=== PATIENT | female | born 1935 | race African-American/Black ===

== ENCOUNTER 2017-01-02 20:18 | Inpatient (IN) | payer MEDICARE, MEDICAID ==
[~2017-01-02] VITALS: Ht 162.6 cm; Wt 90.3 kg
[~2017-01-02 20:18] MED LIST: ACET-2154 PO; AMLO2.5T PO; ASCO500T9 PO; ASPI81TA31 PO; ATOR40TA PO; BISA10SU12 RC; BLOO-668 IN; DIVA125C PO; DOCU-25 PO; FAMO-132 PO; GABA-532 PO; GLIP10TA11 PO; HYDR-4076 PO; HYDROCORTISONE CREAM TOP; INSU100V10 SQ; INSU100V28 SQ; LORA0.5T PO; MAALOX PO; MAGN400O4 PO; OXYB5TAB PO; PROT946L PO; QUET100T PO; TRIA60LO7 TOP; ZOLP5TAB7 PO; [UNRECOGNIZED DRUG - OTHER] EACHEYE
--- NOTE | 2017-01-02 21:00 | NUR ---
Patient BIB private ambulance for Medical Clearance and GPS admission. Patient arrives on 5150 hold for GD. Per hold, patient has a history of refusing care, hygeine, and medications. Per hold, patient was wandering outside of normal area and barricaded herself behind several lunch tables. Per hold, patient further refuses to allow staff to change her adult daiper despite it being in place greater than 24 hours. To room 3A.
[2017-01-02] MEDS ORDERED: QUET50TA PO (21:10)
[2017-01-02] MEDS ORDERED: ENOX30DI5 SQ (21:10)
[2017-01-02] MEDS ORDERED: LINA5TAB PO (21:10)
[2017-01-02] MEDS ORDERED: [UNRECOGNIZED DRUG - CODE] MC (21:10)
[2017-01-02] MEDS ORDERED: OXCA300T PO (21:10)
[2017-01-02] MEDS ORDERED: HYDR-4076 PO (21:10)
[2017-01-02] MEDS ORDERED: POLY15DR57 OP (21:10)
[2017-01-02] MEDS ORDERED: QUET25TA PO (21:10)
[2017-01-02] MEDS ORDERED: GLUC1VIA4 IJ (21:10)
[2017-01-02 21:53] LABS: BASOPHILS % (AUTO) 0.2 % (0.0-2.0); EOSINOPHILS # (AUTO) 0.1 K/uL (0.0-0.7); EOSINOPHILS % (AUTO) 0.9 % (0.0-7.0); HEMATOCRIT 38.8 % (37.0-47.0); HEMOGLOBIN 12.7 g/dL (12.0-16.0); LYMPHOCYTES # (AUTO) 1.5 K/uL (0.8-4.8); LYMPHOCYTES % (AUTO) 12.5 % (20.5-51.5); MEAN CORPUSCULAR HEMOGLOBIN 27.5 uug (27.0-31.0); MEAN CORPUSCULAR HGB CONC 33 g/dL (32.0-37.0); MEAN CORPUSCULAR VOLUME 83.9 fL (81.0-99.0); MONOCYTES # (AUTO) 0.8 K/uL (0.1-1.30); MONOCYTES % (AUTO) 6.6 % (0.0-11.0); NEUTROPHILS # (AUTO) 9.3 K/uL (1.8-8.9); NEUTROPHILS % (AUTO) 79.8 % (38.5-71.5); RED BLOOD CELL COUNT(AUTO) 4.62 MIL/uL (4.20-5.40); RED CELL DISTRIBUTION WIDTH 14.6 % (11.5-14.5); WHITE BLOOD COUNT (AUTO) 11.7 K/uL (4.0-11.2)
[2017-01-02 21:58] LABS: PLATELET COUNT (AUTO) 250 K/uL (150-450)
[2017-01-02 21:59] LABS: CALCIUM 9.4 mg/dL (8.5-10.1); CREATININE 1.6 mg/dL (0.6-1.3); POTASSIUM 4.4 mmol/L (3.5-5.1)
[2017-01-02 22:08] LABS: ALBUMIN 3.7 g/dL (3.4-5.0); BILIRUBIN,DIRECT 0.1 mg/dL (0.0-0.2); BILIRUBIN,TOTAL 0.5 mg/dL (0.1-1.0)
--- NOTE | 2017-01-02 23:19 | NUR ---
Pt. admitted to GPS, under care of Dr. Ordaz Belongs List completed
[2017-01-02 23:30] VITALS: BP 142/95
[2017-01-02] MEDS ORDERED: LORAZEPAM 1 MG TABLET PO PRN (23:30)
[2017-01-02] MEDS ORDERED: MAGNESIUM HYDROXIDE 30 ML LIQUID UDC PO PRN (23:30)
[2017-01-02] MEDS ORDERED: MAG HYDROX/AL HYDROX/SIMETH 30 ML LIQUID UDC PO PRN (23:30)
[2017-01-02] MEDS ORDERED: ACETAMINOPHEN 325 MG TABLET PO PRN (23:30)
[2017-01-02] MEDS ORDERED: ZOLPIDEM 5 MG TABLET PO PRN (23:30)
--- NOTE | 2017-01-03 01:02 | NUR ---
RECEIVED TO CARE, ON A 5150 FOR GRAVELY DISABLED, THIS AA FEMALE FROM [facility]. ACCORDING TO THE CHART, SHE RETURNED TO HER FACILITY ON 12/30/16 FROM [facility]. SINCE HER RETURN, SHE HAS BEEN REFUSING MEDS, BELIEVING THEM TO CAUSE HER "SCABIES". SHE HAS ALSO BEEN REFUSING CARE AND REDIRECTION BY STAFF. SHE BARRICADED HERSELF IN THE DINING ROOM WITH TABLES. SHE ALSO WOULD NOT LET STAFF CHANGE HER DIAPER FOR 24 HOURS. UPON ARRIVAL ON THE UNIT, SHE WAS DISHEVELED AND MALODOROUS. SHE WAS ASSISTED WITH A SHOWER. SHE WAS COOPERATIVE WITH ADMISSION QUESTIONS, BUT IS A POOR HISTORIAN. ORIENTED TO UNIT, AND CONTRACTED FOR SAFETY.SHE ARRIVED ON THE UNIT AT 2320. WAS ASSISITED TO BED BY 0015. SHE WAS ASLEEP BY 0030. OF 101, SHE REMAINS ASLEEP. NO DISTRESS NOTED. WILL CONTINUE TO MONITOR CLOSELY.
--- NOTE | 2017-01-03 06:00 | NUR ---
slept 5.75 hours. assisted with AM care, and shower. no distress noted.
--- NOTE | 2017-01-03 06:15 | NUR ---
AM accucheck was 177.
[2017-01-03 07:30] VITALS: BP 129/81
[2017-01-03] MEDS ORDERED: DEXTROSE 50% 50 ML DISP.SYRIN IV PRN (08:30)
[2017-01-03] MEDS: ASCORBIC ACID 500 MG TABLET PO SCH (10:21)
[2017-01-03] MEDS: GABAPENTIN 100 MG CAPSULE PO SCH ×3 (10:21→17:24)
[2017-01-03] MEDS: AMLODIPINE 2.5 MG TABLET PO SCH (10:21)
[2017-01-03] MEDS: ASPIRIN 81 MG TAB.CHEW PO SCH (10:21)
[2017-01-03] MEDS: OXCARBAZEPINE 300 MG TABLET PO SCH ×3 (10:21→17:24)
[2017-01-03] MEDS: DOCUSATE SODIUM 100 MG CAPSULE PO SCH ×2 (10:21→17:00)
[2017-01-03] MEDS: OXYBUTYNIN XL 5 MG TABSR PO SCH (10:21)
[2017-01-03] MEDS: POLYVINYL ALCOHOL OPHT DROPS 15 ML BOTTLE EACHEYE SCH ×3 (10:22→17:26)
[2017-01-03] MEDS: INSULIN DETEMIR 300 UNIT/3 ML CARTRIDGE SQ SCH ×2 (10:43→20:49)
[2017-01-03] MEDS: MIRALAX 17 GM POWD.PACK PO SCH ×2 (11:45→17:00)
[2017-01-03] MEDS ORDERED: GLUCAGON,HUMAN RECOMBINANT 1 MG VIAL IM PRN (11:45)
[2017-01-03] MEDS: BLOOD SUGAR DIAGNOSTIC 1 EACH STRIP VI SCH ×3 (12:07→20:49)
[2017-01-03] MEDS: DIVALPROEX SPRINKLE 125 MG CAP.SPRINK PO SCH ×3 (12:28→21:00)
[2017-01-03] MEDS: INSULIN REGULAR, HUMAN 300 UNIT/3 ML VIAL SQ PRN ×3 (12:30→20:50)
[2017-01-03] MEDS: hydrALAZINE HCL 25 MG TABLET PO SCH ×2 (15:01→22:00)
[2017-01-03 16:00] VITALS: BP 113/64
[2017-01-03] MEDS: QUETIAPINE FUMARATE 25 MG TABLET PO SCH (17:24)
[2017-01-03] MEDS: glipiZIDE 10 MG TABLET PO SCH (17:25)
[2017-01-03] MEDS: ENOXAPARIN SODIUM 30 MG/0.3 ML DISP.SYRIN SQ SCH (20:39)
[2017-01-03 20:40] VITALS: BP 110/56
[2017-01-03] MEDS ORDERED: QUETIAPINE FUMARATE 100 MG TABLET PO SCH (21:00)
[2017-01-03] MEDS: ATORVASTATIN 40 MG TABLET PO SCH (21:00)
[2017-01-03] MEDS: FAMOTIDINE 20 MG TABLET PO SCH (21:00)
--- NOTE | 2017-01-03 22:00 | NUR ---
received to care, lying in bed, pleasant upon approach. when approached to take her bedtime medications, she was sound asleep. able to be awakened, but she went right back to sleep, so her bedtime medications were held. as of 2199, she remains asleep. respirations are even and unlabored. no distress noted. will continue to monitor closely.
--- NOTE | 2017-01-04 06:00 | NUR ---
slept 10 hours, total.
[2017-01-04] MEDS: hydrALAZINE HCL 25 MG TABLET PO SCH ×3 (06:17→21:26)
[2017-01-04] MEDS: BLOOD SUGAR DIAGNOSTIC 1 EACH STRIP VI SCH ×4 (06:33→21:15)
[2017-01-04 07:56] LABS: BASOPHILS % (AUTO) 0.2 % (0.0-2.0); EOSINOPHILS # (AUTO) 0.1 K/uL (0.0-0.7); EOSINOPHILS % (AUTO) 1.3 % (0.0-7.0); HEMATOCRIT 33.1 % (37.0-47.0); HEMOGLOBIN 10.6 g/dL (12.0-16.0); LYMPHOCYTES # (AUTO) 2.5 K/uL (0.8-4.8); LYMPHOCYTES % (AUTO) 33.8 % (20.5-51.5); MEAN CORPUSCULAR HGB CONC 32 g/dL (32.0-37.0); MEAN CORPUSCULAR VOLUME 84.1 fL (81.0-99.0); MONOCYTES # (AUTO) 0.5 K/uL (0.1-1.30); MONOCYTES % (AUTO) 7.1 % (0.0-11.0); NEUTROPHILS # (AUTO) 4.4 K/uL (1.8-8.9); NEUTROPHILS % (AUTO) 57.6 % (38.5-71.5); PLATELET COUNT (AUTO) 216 K/uL (150-450); RED BLOOD CELL COUNT(AUTO) 3.94 MIL/uL (4.20-5.40); RED CELL DISTRIBUTION WIDTH 14.8 % (11.5-14.5); WHITE BLOOD COUNT (AUTO) 7.5 K/uL (4.0-11.2)
[2017-01-04 08:00] VITALS: BP 126/65
[2017-01-04 08:01] LABS: ALBUMIN 2.8 g/dL (3.4-5.0); BILIRUBIN,TOTAL 0.2 mg/dL (0.2-1.0); MAGNESIUM 2.2 mg/dL (1.8-2.4); PHOSPHOROUS 3.8 mg/dL (2.5-4.9); POTASSIUM 3.8 mmol/L (3.5-5.1); TOTAL PROTEIN, SERUM 6.7 g/dL (6.4-8.2)
[2017-01-04 08:02] LABS: CREATININE 1.6 mg/dL (0.6-1.3)
[2017-01-04 08:08] LABS: THYROID STIMULATING HORMONE 0.459 mIU/mL (0.358-3.740)
[2017-01-04] MEDS: INSULIN REGULAR, HUMAN 300 UNIT/3 ML VIAL SQ PRN (08:10)
[2017-01-04] MEDS: glipiZIDE 10 MG TABLET PO SCH ×2 (08:11→16:30)
[2017-01-04] MEDS: DOCUSATE SODIUM 100 MG CAPSULE PO SCH ×2 (08:12→16:30)
[2017-01-04] MEDS: GABAPENTIN 100 MG CAPSULE PO SCH ×3 (08:12→16:29)
[2017-01-04] MEDS: ASPIRIN 81 MG TAB.CHEW PO SCH (08:12)
[2017-01-04] MEDS: ASCORBIC ACID 500 MG TABLET PO SCH (08:12)
[2017-01-04] MEDS: OXCARBAZEPINE 300 MG TABLET PO SCH ×3 (08:13→16:30)
[2017-01-04] MEDS: DIVALPROEX SPRINKLE 125 MG CAP.SPRINK PO SCH ×4 (08:13→21:25)
[2017-01-04] MEDS: MIRALAX 17 GM POWD.PACK PO SCH ×2 (08:13→16:29)
[2017-01-04] MEDS: QUETIAPINE FUMARATE 25 MG TABLET PO SCH ×2 (08:13→16:30)
[2017-01-04] MEDS: OXYBUTYNIN XL 5 MG TABSR PO SCH (08:16)
[2017-01-04] MEDS: POLYVINYL ALCOHOL OPHT DROPS 15 ML BOTTLE EACHEYE SCH ×3 (08:17→16:29)
[2017-01-04] MEDS: AMLODIPINE 2.5 MG TABLET PO SCH (08:17)
[2017-01-04] MEDS: INSULIN DETEMIR 300 UNIT/3 ML CARTRIDGE SQ SCH ×2 (08:48→21:00)
--- NOTE | 2017-01-04 12:54 | NUR ---
Initial discharge instructions: Patient resides at [facility] [[address] [facility] [place] [address]; ]. Spoke with Ritesh at the facility who stated that they will accept the patient back once she is ready for discharge. ALICIA has called the patient's son/probate conservator Ganesh Genao who stated that he would like to place the patient at a facility that is closer to his home ([place]). SS will speak with patient, family, and MD regarding most appropriate discharge plan. SS will form a safe and proper discharge.
[2017-01-04 15:32] VITALS: BP 154/61
--- NOTE | 2017-01-04 16:30 | NUR ---
Glucotrol held due to decreased blood sugar. Asymptomatic at this time.
[2017-01-04 20:28] VITALS: BP 114/65
[2017-01-04] MEDS: ATORVASTATIN 40 MG TABLET PO SCH (21:25)
[2017-01-04] MEDS: FAMOTIDINE 20 MG TABLET PO SCH (21:25)
[2017-01-04] MEDS: QUETIAPINE FUMARATE 100 MG TABLET PO SCH (21:25)
[2017-01-04] MEDS: ENOXAPARIN SODIUM 30 MG/0.3 ML DISP.SYRIN SQ SCH (21:26)
--- NOTE | 2017-01-04 22:00 | NUR ---
received to care, lying in bed, pleasant upon approach. compliant with medications and staff direction. bedtime dose of levamir was not given. pt refused dinner, and her blood sugar was only 60. milk and applesauce were given at bedtime. as of 2200, she appears to be asleep. no distress noted. will continue to monitor closely.
--- NOTE | 2017-01-05 06:15 | NUR ---
slept 7.5 hours. AM accucheck is 43. orange juice with sugar given. will continue to monitor
[2017-01-05] MEDS: BLOOD SUGAR DIAGNOSTIC 1 EACH STRIP VI SCH ×6 (06:16→21:47)
[2017-01-05] MEDS: hydrALAZINE HCL 25 MG TABLET PO SCH ×3 (06:24→20:55)
--- NOTE | 2017-01-05 06:50 | NUR ---
accucheck is now 68.
[2017-01-05 07:30] VITALS: BP 116/68
[2017-01-05] MEDS: glipiZIDE 10 MG TABLET PO SCH ×2 (07:30→16:52)
[2017-01-05] MEDS: OXCARBAZEPINE 300 MG TABLET PO SCH ×3 (10:12→16:53)
[2017-01-05] MEDS: ASPIRIN 81 MG TAB.CHEW PO SCH (10:13)
[2017-01-05] MEDS: AMLODIPINE 2.5 MG TABLET PO SCH (10:13)
[2017-01-05] MEDS: DIVALPROEX SPRINKLE 125 MG CAP.SPRINK PO SCH ×4 (10:13→20:44)
[2017-01-05] MEDS: DOCUSATE SODIUM 100 MG CAPSULE PO SCH ×2 (10:13→16:53)
[2017-01-05] MEDS: QUETIAPINE FUMARATE 25 MG TABLET PO SCH ×2 (10:13→17:08)
[2017-01-05] MEDS: GABAPENTIN 100 MG CAPSULE PO SCH ×3 (10:13→16:53)
[2017-01-05] MEDS: ASCORBIC ACID 500 MG TABLET PO SCH (10:13)
[2017-01-05] MEDS: INSULIN DETEMIR 300 UNIT/3 ML CARTRIDGE SQ SCH ×2 (10:14→21:00)
[2017-01-05] MEDS: POLYVINYL ALCOHOL OPHT DROPS 15 ML BOTTLE EACHEYE SCH ×3 (10:15→16:52)
[2017-01-05] MEDS: MIRALAX 17 GM POWD.PACK PO SCH ×2 (10:16→16:53)
[2017-01-05] MEDS: OXYBUTYNIN XL 5 MG TABSR PO SCH (10:17)
[2017-01-05] MEDS ORDERED: INFLUENZA VACCINE 0.5 ML DISP.SYRIN IM ONE (11:15)
[2017-01-05] MEDS ORDERED: PNEUMOCOCCAL 23-VAL P-SAC VAC 0.5 ML VIAL IM ONE (11:15)
[2017-01-05] MEDS: INSULIN REGULAR, HUMAN 300 UNIT/3 ML VIAL SQ PRN ×2 (12:24→17:00)
[2017-01-05 15:12] VITALS: BP 119/66
[2017-01-05 20:30] VITALS: BP 111/67
[2017-01-05] MEDS: QUETIAPINE FUMARATE 100 MG TABLET PO SCH (20:44)
[2017-01-05] MEDS: ATORVASTATIN 40 MG TABLET PO SCH (20:44)
[2017-01-05] MEDS: FAMOTIDINE 20 MG TABLET PO SCH (20:45)
[2017-01-05] MEDS: ENOXAPARIN SODIUM 30 MG/0.3 ML DISP.SYRIN SQ SCH (20:51)
[2017-01-06] MEDS: hydrALAZINE HCL 25 MG TABLET PO SCH ×3 (05:38→21:47)
[2017-01-06] MEDS: BLOOD SUGAR DIAGNOSTIC 1 EACH STRIP VI SCH ×5 (06:35→20:51)
[2017-01-06 07:30] VITALS: BP 129/65
[2017-01-06] MEDS: glipiZIDE 10 MG TABLET PO SCH ×3 (07:30→17:18)
[2017-01-06] MEDS: QUETIAPINE FUMARATE 25 MG TABLET PO SCH ×3 (08:08→17:31)
[2017-01-06] MEDS: ASPIRIN 81 MG TAB.CHEW PO SCH (08:08)
[2017-01-06] MEDS: MIRALAX 17 GM POWD.PACK PO SCH ×2 (08:09→17:17)
[2017-01-06] MEDS: GABAPENTIN 100 MG CAPSULE PO SCH ×3 (08:09→17:17)
[2017-01-06] MEDS: DOCUSATE SODIUM 100 MG CAPSULE PO SCH ×2 (08:09→17:17)
[2017-01-06] MEDS: ASCORBIC ACID 500 MG TABLET PO SCH (08:09)
[2017-01-06] MEDS: AMLODIPINE 2.5 MG TABLET PO SCH (08:09)
[2017-01-06] MEDS: DIVALPROEX SPRINKLE 125 MG CAP.SPRINK PO SCH ×4 (08:09→20:06)
[2017-01-06] MEDS: OXCARBAZEPINE 300 MG TABLET PO SCH ×3 (08:09→17:17)
[2017-01-06] MEDS: POLYVINYL ALCOHOL OPHT DROPS 15 ML BOTTLE EACHEYE SCH ×3 (08:11→17:17)
[2017-01-06] MEDS: OXYBUTYNIN XL 5 MG TABSR PO SCH (08:11)
[2017-01-06] MEDS: INSULIN DETEMIR 300 UNIT/3 ML CARTRIDGE SQ SCH ×2 (08:12→20:59)
[2017-01-06] MEDS: INSULIN REGULAR, HUMAN 300 UNIT/3 ML VIAL SQ PRN ×4 (08:13→20:56)
[2017-01-06 15:32] VITALS: BP 105/58
[2017-01-06 19:57] VITALS: BP 159/89
[2017-01-06] MEDS: FAMOTIDINE 20 MG TABLET PO SCH (20:05)
[2017-01-06] MEDS: ATORVASTATIN 40 MG TABLET PO SCH (20:05)
[2017-01-06] MEDS: QUETIAPINE FUMARATE 100 MG TABLET PO SCH (20:06)
[2017-01-06] MEDS: ENOXAPARIN SODIUM 30 MG/0.3 ML DISP.SYRIN SQ SCH (20:09)
[2017-01-06 20:51] VITALS: BP 145/89
[2017-01-06] MEDS: Z GUARD REMEDY PASTE 57 GM TUBE TOP SCH (20:59)
[2017-01-07] MEDS: hydrALAZINE HCL 25 MG TABLET PO SCH ×3 (05:25→21:30)
[2017-01-07] MEDS: BLOOD SUGAR DIAGNOSTIC 1 EACH STRIP VI SCH ×4 (06:09→20:52)
--- NOTE | 2017-01-07 06:29 | NUR ---
GPS: REMAIN CALM AND COOPERATIVE WITH MEDS AND CARE. SHOWERED THIS MORNING.BLOOD SUGAR 170 MG/DL THIS AM. ASSISTED WITH ADL'S. SLEPT 6:30 HRS THROUGH THE NIGHT. SITTING IN [facility] CHAIR NEAR NURSING STATION FOR SAFETY.
[2017-01-07 07:53] VITALS: BP 127/71
[2017-01-07] MEDS: QUETIAPINE FUMARATE 25 MG TABLET PO SCH ×3 (08:31→16:58)
[2017-01-07] MEDS: DIVALPROEX SPRINKLE 125 MG CAP.SPRINK PO SCH ×4 (08:31→20:52)
[2017-01-07] MEDS: GABAPENTIN 100 MG CAPSULE PO SCH ×3 (08:31→16:58)
[2017-01-07] MEDS: DOCUSATE SODIUM 100 MG CAPSULE PO SCH ×2 (08:32→16:57)
[2017-01-07] MEDS: ASCORBIC ACID 500 MG TABLET PO SCH (08:32)
[2017-01-07] MEDS: ASPIRIN 81 MG TAB.CHEW PO SCH (08:32)
[2017-01-07] MEDS: MIRALAX 17 GM POWD.PACK PO SCH ×2 (08:32→16:58)
[2017-01-07] MEDS: POLYVINYL ALCOHOL OPHT DROPS 15 ML BOTTLE EACHEYE SCH ×3 (08:32→17:01)
[2017-01-07] MEDS: AMLODIPINE 2.5 MG TABLET PO SCH (08:32)
[2017-01-07] MEDS: OXYBUTYNIN XL 5 MG TABSR PO SCH (08:36)
[2017-01-07] MEDS: glipiZIDE 10 MG TABLET PO SCH ×2 (08:36→17:01)
[2017-01-07] MEDS: Z GUARD REMEDY PASTE 57 GM TUBE TOP SCH ×2 (08:36→20:53)
[2017-01-07] MEDS: INSULIN DETEMIR 300 UNIT/3 ML CARTRIDGE SQ SCH ×2 (08:38→21:00)
[2017-01-07] MEDS: OXCARBAZEPINE 300 MG TABLET PO SCH ×3 (08:40→16:57)
[2017-01-07] MEDS: INSULIN REGULAR, HUMAN 300 UNIT/3 ML VIAL SQ PRN ×4 (08:40→21:17)
[2017-01-07 15:21] VITALS: BP 141/81
[2017-01-07 20:20] VITALS: BP 142/87
[2017-01-07] MEDS: FAMOTIDINE 20 MG TABLET PO SCH (20:51)
[2017-01-07] MEDS: ATORVASTATIN 40 MG TABLET PO SCH (20:51)
[2017-01-07] MEDS: QUETIAPINE FUMARATE 100 MG TABLET PO SCH (20:51)
[2017-01-07] MEDS: ENOXAPARIN SODIUM 30 MG/0.3 ML DISP.SYRIN SQ SCH (21:08)
--- NOTE | 2017-01-07 22:00 | NUR ---
received to care, lying in bed, pleasant upon approach. compliant with medications and staff direction, except for her levamir insulin; her blood sugar was 195. she agreed to have regular insulin coverage, and her lovenox injection, but she refused the levamir. bedtime snack was given. as of 2200, she appears to be asleep. no distress noted. will continue to monitor closely.
[2017-01-08] MEDS: hydrALAZINE HCL 25 MG TABLET PO SCH ×3 (05:47→22:22)
--- NOTE | 2017-01-08 06:00 | NUR ---
slept 10 hours, total. assisted with AM care, and placed in the gaviota chair. no distress noted.
[2017-01-08] MEDS: BLOOD SUGAR DIAGNOSTIC 1 EACH STRIP VI SCH ×4 (06:07→20:36)
[2017-01-08 07:56] VITALS: BP 112/65
[2017-01-08] MEDS: INSULIN DETEMIR 300 UNIT/3 ML CARTRIDGE SQ SCH ×2 (08:16→20:38)
[2017-01-08] MEDS: OXCARBAZEPINE 300 MG TABLET PO SCH ×3 (08:19→16:27)
[2017-01-08] MEDS: DOCUSATE SODIUM 100 MG CAPSULE PO SCH ×2 (08:19→16:25)
[2017-01-08] MEDS: ASPIRIN 81 MG TAB.CHEW PO SCH (08:19)
[2017-01-08] MEDS: MIRALAX 17 GM POWD.PACK PO SCH ×2 (08:19→16:25)
[2017-01-08] MEDS: DIVALPROEX SPRINKLE 125 MG CAP.SPRINK PO SCH ×4 (08:19→20:14)
[2017-01-08] MEDS: glipiZIDE 10 MG TABLET PO SCH ×2 (08:20→16:27)
[2017-01-08] MEDS: ASCORBIC ACID 500 MG TABLET PO SCH (08:20)
[2017-01-08] MEDS: AMLODIPINE 2.5 MG TABLET PO SCH (08:20)
[2017-01-08] MEDS: GABAPENTIN 100 MG CAPSULE PO SCH ×3 (08:21→16:25)
[2017-01-08] MEDS: OXYBUTYNIN XL 5 MG TABSR PO SCH (08:24)
[2017-01-08] MEDS: POLYVINYL ALCOHOL OPHT DROPS 15 ML BOTTLE EACHEYE SCH ×3 (08:27→16:26)
[2017-01-08] MEDS: QUETIAPINE FUMARATE 25 MG TABLET PO SCH ×2 (08:27→16:25)
[2017-01-08] MEDS: Z GUARD REMEDY PASTE 57 GM TUBE TOP SCH ×2 (08:27→20:52)
[2017-01-08] MEDS: INSULIN REGULAR, HUMAN 300 UNIT/3 ML VIAL SQ PRN ×3 (12:30→20:41)
[2017-01-08 15:36] VITALS: BP 126/69
[2017-01-08 20:00] VITALS: BP 124/82
[2017-01-08] MEDS: ATORVASTATIN 40 MG TABLET PO SCH (20:14)
[2017-01-08] MEDS: QUETIAPINE FUMARATE 100 MG TABLET PO SCH (20:14)
[2017-01-08] MEDS: FAMOTIDINE 20 MG TABLET PO SCH (20:14)
[2017-01-08] MEDS: ENOXAPARIN SODIUM 30 MG/0.3 ML DISP.SYRIN SQ SCH (20:18)
--- NOTE | 2017-01-08 22:00 | NUR ---
received to care, lying in bed, pleasant upon approach. compliant with medications, and staff direction. as of 0, she appears to be asleep. no distress noted. will continue to monitor closely.
--- NOTE | 2017-01-09 06:00 | NUR ---
slept 7.5 hours. assisted with AM care, and shower. currently up in [facility]. no dsitress noted.
[2017-01-09] MEDS: hydrALAZINE HCL 25 MG TABLET PO SCH ×3 (06:15→21:40)
[2017-01-09] MEDS: BLOOD SUGAR DIAGNOSTIC 1 EACH STRIP VI SCH ×4 (06:16→20:05)
[2017-01-09 07:30] VITALS: BP_SYST 128; BP_SYST 130; BP_DIAS 41; BP_DIAS 74
[2017-01-09] MEDS: INSULIN DETEMIR 300 UNIT/3 ML CARTRIDGE SQ SCH ×2 (08:09→20:50)
[2017-01-09] MEDS: OXYBUTYNIN XL 5 MG TABSR PO SCH (08:12)
[2017-01-09] MEDS: DIVALPROEX SPRINKLE 125 MG CAP.SPRINK PO SCH ×4 (08:12→20:47)
[2017-01-09] MEDS: OXCARBAZEPINE 300 MG TABLET PO SCH ×3 (08:12→16:54)
[2017-01-09] MEDS: glipiZIDE 10 MG TABLET PO SCH ×2 (08:12→16:38)
[2017-01-09] MEDS: QUETIAPINE FUMARATE 25 MG TABLET PO SCH ×2 (08:12→16:54)
[2017-01-09] MEDS: GABAPENTIN 100 MG CAPSULE PO SCH ×3 (08:12→16:38)
[2017-01-09] MEDS: ASPIRIN 81 MG TAB.CHEW PO SCH (08:12)
[2017-01-09] MEDS: AMLODIPINE 2.5 MG TABLET PO SCH (08:13)
[2017-01-09] MEDS: DOCUSATE SODIUM 100 MG CAPSULE PO SCH ×2 (08:13→16:38)
[2017-01-09] MEDS: MIRALAX 17 GM POWD.PACK PO SCH ×3 (08:13→16:49)
[2017-01-09] MEDS: ASCORBIC ACID 500 MG TABLET PO SCH (08:15)
[2017-01-09] MEDS: POLYVINYL ALCOHOL OPHT DROPS 15 ML BOTTLE EACHEYE SCH ×3 (08:15→16:49)
[2017-01-09] MEDS: Z GUARD REMEDY PASTE 57 GM TUBE TOP SCH ×2 (08:16→21:03)
--- NOTE | 2017-01-09 13:01 | NUR ---
WEEKLY MEETING PO INTAKE 100% CONSISTENTLY ON CCHO 60 GM, NO SIGNIFICANT WT CHANGES NO DIET RECOMMENDATIONS AT THIS TIME NOTED SKIN TEAR ON BUTTOCKS NOTED HYPERGLYCEMIA, WITH ORDER FOR GLUCOTROL AND INSULIN SSI NUTRITION DIAGNOSIS: ALTERED NUTRITION RELATED LABS RELATED TO ENDOCRINE DYSFUNCTION EVIDENCED BY HX OF DIABETES AND ELEVATED GLUCOSE LABS. MONITOR LABS, WT, AND PO INTAKE Addendum: 01/09/17 at [address] Amended: Links added.
[2017-01-09 16:00] VITALS: BP 144/80
[2017-01-09] MEDS: INSULIN REGULAR, HUMAN 300 UNIT/3 ML VIAL SQ PRN ×2 (16:40→20:54)
[2017-01-09 20:00] VITALS: BP 146/85
[2017-01-09] MEDS: ENOXAPARIN SODIUM 30 MG/0.3 ML DISP.SYRIN SQ SCH (20:46)
[2017-01-09] MEDS: FAMOTIDINE 20 MG TABLET PO SCH (20:47)
[2017-01-09] MEDS: QUETIAPINE FUMARATE 100 MG TABLET PO SCH (20:47)
[2017-01-09] MEDS: ATORVASTATIN 40 MG TABLET PO SCH (20:47)
--- NOTE | 2017-01-09 22:00 | NUR ---
received to care, up in gaviota chair, pleasant upon approach. compliant with medications and staff direction. no episodes of sexually inappropriate behavior noted. as of 2199, she is in bed, asleep. no distress noted. will continue to monitor closely.
[2017-01-10] MEDS: hydrALAZINE HCL 25 MG TABLET PO SCH ×3 (06:14→21:33)
[2017-01-10] MEDS: BLOOD SUGAR DIAGNOSTIC 1 EACH STRIP VI SCH ×4 (06:14→21:36)
--- NOTE | 2017-01-10 06:30 | NUR ---
slept 7.0 hours, total. assisted with AM care, and placed in the gaviota chair. no distress noted.
[2017-01-10 07:30] VITALS: BP 154/61
[2017-01-10] MEDS: OXCARBAZEPINE 300 MG TABLET PO SCH ×3 (08:45→17:32)
[2017-01-10] MEDS: DOCUSATE SODIUM 100 MG CAPSULE PO SCH ×2 (08:45→17:29)
[2017-01-10] MEDS: ASPIRIN 81 MG TAB.CHEW PO SCH (08:46)
[2017-01-10] MEDS: GABAPENTIN 100 MG CAPSULE PO SCH ×3 (08:46→17:29)
[2017-01-10] MEDS: QUETIAPINE FUMARATE 25 MG TABLET PO SCH ×2 (08:46→17:29)
[2017-01-10] MEDS: ASCORBIC ACID 500 MG TABLET PO SCH (08:46)
[2017-01-10] MEDS: DIVALPROEX SPRINKLE 125 MG CAP.SPRINK PO SCH ×4 (08:46→21:33)
[2017-01-10] MEDS: AMLODIPINE 2.5 MG TABLET PO SCH (08:46)
[2017-01-10] MEDS: glipiZIDE 10 MG TABLET PO SCH ×2 (08:47→17:29)
[2017-01-10] MEDS: OXYBUTYNIN XL 5 MG TABSR PO SCH (08:47)
[2017-01-10] MEDS: Z GUARD REMEDY PASTE 57 GM TUBE TOP SCH ×2 (08:48→21:37)
[2017-01-10] MEDS: INSULIN DETEMIR 300 UNIT/3 ML CARTRIDGE SQ SCH ×2 (08:51→21:39)
[2017-01-10] MEDS: INSULIN REGULAR, HUMAN 300 UNIT/3 ML VIAL SQ PRN ×4 (08:52→21:38)
[2017-01-10] MEDS: POLYVINYL ALCOHOL OPHT DROPS 15 ML BOTTLE EACHEYE SCH ×3 (09:00→17:32)
[2017-01-10] MEDS: MIRALAX 17 GM POWD.PACK PO SCH ×2 (09:00→17:29)
[2017-01-10 16:00] VITALS: BP 142/74
[2017-01-10 20:00] VITALS: BP 131/76
[2017-01-10] MEDS: FAMOTIDINE 20 MG TABLET PO SCH (21:33)
[2017-01-10] MEDS: ATORVASTATIN 40 MG TABLET PO SCH (21:33)
[2017-01-10] MEDS: QUETIAPINE FUMARATE 100 MG TABLET PO SCH (21:34)
[2017-01-10] MEDS: ENOXAPARIN SODIUM 30 MG/0.3 ML DISP.SYRIN SQ SCH (21:38)
[2017-01-11] MEDS: glipiZIDE 10 MG TABLET PO SCH (06:41)
[2017-01-11] MEDS: BLOOD SUGAR DIAGNOSTIC 1 EACH STRIP VI SCH ×2 (06:41→11:30)
[2017-01-11] MEDS: hydrALAZINE HCL 25 MG TABLET PO SCH ×2 (06:42→14:00)
[2017-01-11 07:30] VITALS: BP 136/70
[2017-01-11] MEDS: INSULIN DETEMIR 300 UNIT/3 ML CARTRIDGE SQ SCH (09:00)
[2017-01-11] MEDS: MIRALAX 17 GM POWD.PACK PO SCH (09:00)
[2017-01-11] MEDS: DOCUSATE SODIUM 100 MG CAPSULE PO SCH (09:02)
[2017-01-11] MEDS: ASPIRIN 81 MG TAB.CHEW PO SCH (09:02)
[2017-01-11] MEDS: ASCORBIC ACID 500 MG TABLET PO SCH (09:03)
[2017-01-11] MEDS: DIVALPROEX SPRINKLE 125 MG CAP.SPRINK PO SCH ×2 (09:03→12:29)
[2017-01-11] MEDS: AMLODIPINE 2.5 MG TABLET PO SCH (09:03)
[2017-01-11] MEDS: GABAPENTIN 100 MG CAPSULE PO SCH ×2 (09:19→12:29)
[2017-01-11] MEDS: OXCARBAZEPINE 300 MG TABLET PO SCH ×2 (09:19→12:35)
[2017-01-11] MEDS: POLYVINYL ALCOHOL OPHT DROPS 15 ML BOTTLE EACHEYE SCH ×2 (09:19→12:36)
[2017-01-11] MEDS: QUETIAPINE FUMARATE 25 MG TABLET PO SCH (09:20)
[2017-01-11] MEDS: OXYBUTYNIN XL 5 MG TABSR PO SCH (09:31)
[2017-01-11] MEDS: Z GUARD REMEDY PASTE 57 GM TUBE TOP SCH (09:31)
--- NOTE | 2017-01-11 10:39 | NUR ---
Gas Plant Repairer Per patient's son's request, the patient was referred to SNF's near his home ([place], [place]). The patient was referred to the following facilities: 1.) [facility] - Per Zaida, the inquiry was under review and that they will call back; still no response 2.) [facility] - Per Petra, the inquiry was under review and that they will call back; still no response 3.) [facility] - per Bianca, the inquiry was under review and that they will call back; still no response 4.) [facility] - left a voicemail to follow-up; no response 5.) [facility] - Unable to accommodate patient per Barbie in admissions 6.) [facility] - Per admission, no beds available 7.) [facility] - left a voicemail to follow-up; no response 8.) [facility] - left a voicemail for Darron to follow-up; no response 9.) [facility] - unable to accommodate per Neena in admissions 10.) [facility] - Patient has been accepted per Anabel Coelho in admissions at the facility
--- NOTE | 2017-01-11 10:45 | NUR ---
DC Note: The patient will be discharged today to [facility] ([facility]) [[address] [place] [address] ] via ambulance at 12:00 pm. Spoke with Anabel Coelho in admissions at the facility [ ] who stated that they will be able to accept the patient today between 12:45 pm and 2:00 pm. Spoke with the patient's son/Probate conservator Ganesh Genao who is aware and agreeable with the discharge plan. The patient will follow-up at the facility with farm operations manager Dr. Wayne and psychiatrist Dr. Sauer.
[2017-01-11] MEDS: INSULIN REGULAR, HUMAN 300 UNIT/3 ML VIAL SQ PRN (12:21)
--- NOTE | 2017-01-11 12:47 | NUR ---
DISCHARGE NOTE: PT IS BEING DISCHARGED TO [facility] VIA AMBULANCE. 1300 MEDICATIONS GIVEN, BS BEFORE LUNCH WAS 134, PT WAS COVERED WITH 2 UNITS OF REGULAR INSULIN. PT ATE LUNCH. VS ARE STABLE. PT DENIES PAIN. REPORT WAS CALLED IN AND GIVEN TO GABRIEL GIFFORD RN. NO DISTRESS NOTED.
[2017-01-11 14:00] VITALS: BP 136/90
--- NOTE | 2017-01-11 14:19 | NUR ---
pt trans ferred to snf
== END 2017-01-11 13:10 | DRG 885 ==
LOC: ER 20:18 → GPS 21:15
PROVIDERS: ADMIT Psychiatry & Neurology Psychiatry; ATTEND Internal Medicine
DX: F25.0 Schizoaffective disorder, bipolar type (principal); Z91.19 Patient's noncompliance with other medical treatment and regimen; G24.01 Drug induced subacute dyskinesia; T43.505A Adverse effect of unspecified antipsychotics and neuroleptics, initial encounter; Y92.129 Unspecified place in nursing home as the place of occurrence of the external cause; E66.01 Morbid (severe) obesity due to excess calories; Z68.34 Body mass index [BMI] 34.0-34.9, adult; E03.9 Hypothyroidism, unspecified; E11.9 Type 2 diabetes mellitus without complications; Z79.84 Long term (current) use of oral hypoglycemic drugs; K21.9 Gastro-esophageal reflux disease without esophagitis; I10 Essential (primary) hypertension; E78.5 Hyperlipidemia, unspecified; J44.9 Chronic obstructive pulmonary disease, unspecified; D64.9 Anemia, unspecified; D72.829 Elevated white blood cell count, unspecified; F50.89 Other specified eating disorder; R26.9 Unspecified abnormalities of gait and mobility; R13.10 Dysphagia, unspecified; G40.909 Epilepsy, unspecified, not intractable, without status epilepticus
CPT/HCPCS: 36415; 71010; 80164; 83735; 84100; 84443; 85025; 90686; 90732; 92610; 93005; 97001; 97116; 97530; A4663; J1650; J1815